=== PATIENT | male | born 1960 | race Caucasian/White ===

== ENCOUNTER 2020-07-05 00:16 | Outpatient (CLI) | payer OTHER, SELFPAY ==
[2020-07-05 17:26] LABS: SARS-CoV-2 RNA PCR Negative
== END 2020-07-05 00:17 | disposition home or self-care (01) ==
LOC: ANHCOVIDDT 00:16
PROVIDERS: PCP Internal Medicine; Visit Provider Internal Medicine Gastroenterology
DX: Z01.812 Encounter for preprocedural laboratory examination (principal); Z20.828 Contact with and (suspected) exposure to other viral communicable diseases
CPT/HCPCS: 87635; C9803; U0003

== ENCOUNTER 2020-07-07 00:29 | Day surgery (SDC) | payer OTHER, SELFPAY ==
[2020-06-30 13:38] VITALS: BMI 32.5
--- NOTE | 2020-07-06 12:59 | P.PNAN_ITS ---
Anes - Initial Pre Proc Eval Procedure: Operation Date: 07/07/20 08:00 Proposed Procedures p Screening Colonoscopy - George Guzman MD Date/Time: 07/06/20 12:59 Surgeon: George Guzman MD Pre Op Diagnosis: NEOPLASM SCREENING, HX OF POLYPS Patient Data Age: 59 Gender: M Height: 1.75 m Weight: 100 kg Allergies Allergy/AdvReac Type Severity Reaction Status Date / Time No Known Allergies Allergy Verified 07/07/20 06:49 Home Medications Medication Instructions Recorded Confirmed Type aspirin 81 mg tablet,delayed 81 mg PO DAILY 09/30/19 06/30/20 History release dorzolamide 22.3 mg-timolol 6.8 1 drop EACH EYE BID ml 09/30/19 07/07/20 Histor y mg/mL eye drops pvxdtyjjrqke-piqcjpeh-jfnuxy 1 tablet PO DAILY 09/30/19 06/30/20 History turmeric 400 mg capsule mg PO DAILY cap 09/30/19 12/15/19 History vitamins A,C,R-ftem-rmqfny 7,160 2 tablet PO BID 09/30/19 12/15/19 History unit-113 mg-100 unit tablet miconazole nitrate 2 % topical 1 applic TOPICAL BID #30 gm 12/11/19 07/07/20 Rx cream amlodipine 5 mg tablet 5 mg PO DAILY #90 tablet 05/10/20 06/30/20 Rx sertraline 50 mg tablet 50 mg PO DAILY #90 tablet 06/20/20 06/30/20 Rx psyllium husk [Metamucil] 0.4 g PO QID 06/30/20 06/30/20 History Patient hx anesthesia problems: none Family hx anesthesia problems: none PMFSH Past Medical History Medical History (Updated 07/07/20 @ 07:09 by George Guzman MD) Allergies Cataracts, bilateral Depression Hemorrhoids History of sleep apnea Hypertension Hypertriglyceridemia Insomnia Obesity Renal stones Tear of meniscus of knee Left Surgical History Surgical History History of tonsillectomy 1969 Hx of LASIK Hx of total knee arthroplasty Left: 12/10/2012 Family History Family History (Updated 09/30/19 @ 11:04 by Jeanie Mejias [facility]) Mother Hypertension Social History Social History (Updated 07/07/20 @ 07:12 by Jarrett Harmon DO) Smoking status: Never smoker Smoking end date: 10/21/98 Alcohol intake: current Alcohol use details: 2-3 beers/day Substance use type: does not use Living arrangements: with family Gender identity (if verbalized by the patient): Male Sexual Orientation (if Verbalized by the Patient): Straight or Heterosexual Spiritual care concerns: No Anes - Eval Final PreProcedure Day of Procedure 07/06/20 12:59 Patient weight: obese Heart: regular rate and rhythm Lungs: clear to auscultation and normal air movement Airway: Mallampati scale class IV Neurological: alert and oriented Last oral intake: >/= 8 hours ASA classification: III Emergent: no Anesthetic plan: proceed Anesthesia type and monitoring: general GIVS and standard monitoring Informed Consent: The patient's anesthetic plan and its attendant risks and benefits were discussed with the patient/family/POA. Questions were solicited and answers provided to the satisfaction of the patient/family/POA.
[2020-07-07 06:53] VITALS: BP 119/81; PULSE 66; RESP 18; TEMP 36.7; O2SAT 98; BMI 37.8
--- NOTE | 2020-07-07 07:08 | PM.HPGS ---
History of Present Illness History of Present Illness Consent: Risks, benefits, and alternatives have been discussed and questions answered. Patient agrees to proceed with procedure. Chief complaint: NEOPLASM SCREENING, HX OF POLYPS Narrative: Bhupinder Ghotra is a 59 year old W male referred for screening colonoscopy secondary history of colonic polyps. Last colonoscopy was 6 years ago which time 2 adenomatous polyps were removed. Patient is asymptomatic. There is no known family history of colon cancer. [facility] Past Medical History Medical History (Updated 07/07/20 @ 07:09 by George Guzman MD) Allergies Cataracts, bilateral Depression Hemorrhoids History of sleep apnea Hypertension Hypertriglyceridemia Insomnia Obesity Renal stones Tear of meniscus of knee Left Surgical History Surgical History History of tonsillectomy 1969 Hx of LASIK Hx of total knee arthroplasty Left: 12/10/2012 Family History Family History (Updated 09/30/19 @ 11:04 by Jeanie Mejias CMA) Mother Hypertension Social History Social History (Updated 09/30/19 @ 11:04 by Jeanie Mejias CMA) Smoking status: Never smoker Smoking end date: 10/21/98 Alcohol intake: current Drinks per week: 10 Alcohol use details: beer Substance use type: does not use Living arrangements: with family Gender identity (if verbalized by the patient): Male Sexual Orientation (if Verbalized by the Patient): Straight or Heterosexual Spiritual care concerns: No Meds Home Medications and Allergies Home Medications Medication Instructions Recorded Confirmed Type aspirin 81 mg tablet,delayed 81 mg PO DAILY 09/30/19 06/30/20 History release dorzolamide 22.3 mg-timolol 6.8 1 drop EACH EYE BID ml 09/30/19 07/07/20 History mg/mL eye drops xfawfxksbrky-chvjadef-njlwsa 1 tablet PO DAILY 09/30/19 06/30/20 History turmeric 400 mg capsule mg PO DAILY cap 09/30/19 12/15/19 History vitamins A,C,M-qvfn-hgenhp 7,160 2 tablet PO BID 09/30/19 12/15/19 History unit-113 mg-100 unit tablet miconazole nitrate 2 % topical 1 applic TOPICAL BID #30 gm 12/11/19 07/07/20 Rx cream amlodipine 5 mg tablet 5 mg PO DAILY #90 tablet 05/10/20 06/30/20 Rx sertraline 50 mg tablet 50 mg PO DAILY #90 tablet 06/20/20 06/30/20 Rx psyllium husk [Metamucil] 0.4 g PO QID 06/30/20 06/30/20 History Allergies Allergy/AdvReac Type Severity Reaction Status Date / Time No Known Allergies Allergy Verified 07/07/20 06:49 Vital Signs Vital Signs - 24 hr 07/07/20 06:53 Temperature 36.7 C Pulse Rate 66 Respiratory Rate 18 Blood Pressure 119/81 Pulse Oximetry 98 Exam Const: Orientation/consciousness: patient oriented x3 Resp: Auscultation: clear to auscultation bilaterally Cardio: Rate: regular rate Rhythm: regular rhythm Heart sounds: no murmurs GI: GI Palp: Yes Soft to palpation, No Tenderness to palpation present (GI), Yes No hepatosplenomegaly present and No Palpable mass present Auscultation: normal bowel sounds Neuro: General: patient oriented x3 and no focal motor deficits Extrem: General: no pedal edema Assessment and Plan Additional Plan screening colonoscopy secondary history of colonic polyps
[2020-07-07] MEDS: LACTATED RINGERS 1,000 ML 150 ML IV CONT (07:09)
[2020-07-07 08:30] VITALS: BP 115/75; PULSE 59; RESP 16; O2SAT 100
[2020-07-07 08:35] VITALS: BP 115/75; PULSE 63; RESP 21; O2SAT 100
--- NOTE | 2020-07-07 08:41 | SUR.PHASEII ---
pt arrival to postop 0825 and first vital sign should reflect that time.
[2020-07-07 08:45] VITALS: BP 117/73; PULSE 58; RESP 20; O2SAT 100
== END 2020-07-07 08:53 | disposition home or self-care (01) ==
PROVIDERS: PCP Internal Medicine; Visit Provider Internal Medicine Gastroenterology
PROC: 0DJD8ZZ Inspection of Lower Intestinal Tract, Via Natural or Artificial Opening Endoscopic (ICD-10-PCS; CPT 45378; principal; 2020-07-07 08:00)
DX: Z12.11 Encounter for screening for malignant neoplasm of colon (principal); D12.3 Benign neoplasm of transverse colon; K57.30 Diverticulosis of large intestine without perforation or abscess without bleeding; K64.4 Residual hemorrhoidal skin tags; I10 Essential (primary) hypertension; E78.1 Pure hyperglyceridemia; F32.9 Major depressive disorder, single episode, unspecified; Z79.82 Long term (current) use of aspirin; E66.9 Obesity, unspecified; Z68.37 Body mass index [BMI] 37.0-37.9, adult
CPT/HCPCS: 45385; 88305; J2704; J7120